=== PATIENT | male | born 1960 | race Caucasian/White ===

== ENCOUNTER 2018-04-19 06:42 | Emergency (ER) | payer BC ==
[~2018-04-19] VITALS: Ht 188 cm; Wt 99.8 kg
[2018-04-19] MEDS ORDERED: SYNOVACIN500 MG (07:09)
[2018-04-19] MEDS ORDERED: SYNTHROID125 MCG (07:09)
[2018-04-19] MEDS ORDERED: [UNRECOGNIZED DRUG - OTHER] (07:12)
[2018-04-19] MEDS ORDERED: OMEPRAZOLE20 MG (07:12)
== END 2018-04-19 15:00 | disposition home or self-care (01) ==
LOC: ER 06:42
DX: R60.0 Localized edema (principal); R51 Headache; H92.01 Otalgia, right ear